=== PATIENT | female | born 1985 | race Caucasian/White ===

== ENCOUNTER 2024-01-19 08:40 | Emergency (ER) | payer BC, SELFPAY ==
[2024-01-19 08:52] VITALS: BP 148/91; PULSE 90; RESP 16; TEMP 37.3; O2SAT 99
[2024-01-19 09:26] LABS: EDINFLUASCREEN Negative; EDINFLUBSCREEN Negative
--- NOTE | 2024-01-19 09:44 | ED.GENADULT ---
HPI - General Adult General Chief complaint: Upper Respiratory Infection Stated complaint: Sinus Source: patient Mode of arrival: ambulatory Limitations: no limitations History of Present Illness HPI narrative: Patient presents for evaluation of sinus congestion, thick yellow nasal drainage, and cough. Symptom onset one week ago. Cough is intermittently productive yellow sputum. No fever, chills, nausea, vomiting, diarrhea. Her family members all have similar symptoms but their symptoms are improving. She is not taking any medication to assist with her symptoms. She does not smoke. Related Data Allergies Allergy/AdvReac Type Severity Reaction Status Date / Time No Known Allergies Allergy Mild Verified 01/19/24 08:41 Review of Systems Review of Systems: CONSTITUTIONAL: Denies fever, chills, or sweats. EYES: Denies visual changes, redness, or discharge. ENT: reports sinus congestion, thick yellow drainage from the nares. Denies otalgia. CARDIOVASCULAR: Denies chest pain, palpitations, or edema. RESPIRATORY: Reports cough which is intermittently productive of yellow sputum. Denies shortness of breath. GASTROINTESTINAL: Denies abdominal pain, nausea, vomiting, or diarrhea. GENITOURINARY: Denies dysuria or hematuria. SKIN: Denies rash or itching. MUSCULOSKELETAL: Denies back pain, joint pain, or myalgia. NEUROLOGIC: Denies headache, numbness, dizziness, or weakness. PSYCHIATRIC: Denies anxiety or depression. PMFSH Past Medical History Medical History No pertinent past medical history Surgical History Surgical History No pertinent past surgical history Family History Family History Mother Family history non-contributory Social History Social History Smoking status: Never smoker Substance use: never Living arrangements: with family Gender identity (if verbalized by the patient): Female Sexual Orientation (if Verbalized by the Patient): Straight or Heterosexual Exam Narrative: GENERAL: Well-appearing, well-nourished, and in no acute distress. HEAD: Normocephalic, atraumatic. EYES: PERRLA and EOMI. ENT: Thick yellow drainage in the nares bilaterally. Mucous membranes moist. Oropharynx without tonsillar hypertrophy exudate or other lesions. Bilateral TMs pearly upton nonbulging NECK: Supple. No adenopathy or masses. No carotid bruits or JVD CHEST: Clear to auscultation. No respiratory distress. No wheezes rales or rhonchi HEART: Regular rate and rhythm. No murmur heard. Normal peripheral pulses. ABDOMEN: Soft, nontender, nondistended, normal active bowel sounds. EXTREMITIES: Normal range of motion. No edema. SKIN: Warm, dry, no rash. NEURO: No focal deficits. Alert and oriented x3. PSYCH: Normal mood and affect. Course Course Emergency Course: This is a 38-year-old female who presented for evaluation of sick symptoms. COVID and influenza are negative. She meets criteria for ABRS based upon duration of time in which she has been symptomatic and mucopurulent nature of nasal drainage. Will dc with augmentin and mucinex DM. Increase hydration. Follow-up with primary provider. Go to the ER for worsening symptoms. Patient in agreement with plan of care. Level of Care: Express Care Visit Vital Signs Vital signs: Vital Signs Temperature 37.3 C 01/19/24 08:52 Pulse Rate 90 01/19/24 08:52 Respiratory Rate 16 01/19/24 08:52 Blood Pressure 148/91 H 01/19/24 08:52 Pulse Oximetry 99 01/19/24 08:52 Oxygen Delivery Room Air 01/19/24 08:52 Temperature 37.3 C 01/19/24 08:52 Pulse Rate 90 01/19/24 08:52 Respiratory Rate 16 01/19/24 08:52 Blood Pressure 148/91 H 01/19/24 08:52 Pulse Oximetry 99 01/19/24 08:52 Oxyg
== END 2024-01-19 09:30 | disposition home or self-care (01) ==
PROVIDERS: Emergency Provider Nurse Practitioner
DX: J32.9 Chronic sinusitis, unspecified (principal); Z20.822 Contact with and (suspected) exposure to COVID-19
CPT/HCPCS: 87426; 87804; 99203; G0463